=== PATIENT | female | born 1990 | race Caucasian/White ===

== ENCOUNTER 2020-06-25 11:04 | Emergency (ER) | payer OTHER ==
[~2020-06-25] VITALS: Ht 162.6 cm; Wt 104.3 kg
--- OUTSIDE RECORDS SUMMARY | 2020-06-25 11:08 | XMS ---
PreManage Notification: ALEJANDRO HOLLAND Security Catering Assistant Events No recent Security Events currently on file [facility] There are no care providers on record at this time. Diane has no Care Guidelines for this patient. Reuben VISIT COUNT (12 MO.) 1 GURVINDER Packer TOTAL 1 NOTE: Visits indicate total known visits. ED/C VISIT TRACKING (12 MO.) 06/25/2020 11:05 GURVINDER Harry OR TYPE: Emergency COMPLAINT: - HEADACHE INPATIENT VISIT TRACKING (12 MO.) No inpatient visits to display in this time frame [id number]
[2020-06-25] MEDS ORDERED: CYPROHEPTADINE H4 MG PO (11:44)
[2020-06-25] MEDS ORDERED: SUMATRIPTAN SUC50 MG PO (11:45)
[2020-06-25] MEDS ORDERED: DULOXETINE HCL60 MG PO (11:45)
[2020-06-25] MEDS ORDERED: REXULTI2 MG PO (11:46)
[2020-06-25] MEDS ORDERED: CLONAZEPAM1 MG PO (11:46)
[2020-06-25] MEDS ORDERED: OLANZAPINE5 MG PO (11:47)
== END 2020-06-25 15:30 | disposition home or self-care (01) ==
LOC: ED 11:04
DX: O99.891 Other specified diseases and conditions complicating pregnancy (principal); R51.9 Headache, unspecified; Z3A.14 14 weeks gestation of pregnancy; O99.331 Smoking (tobacco) complicating pregnancy, first trimester; F17.200 Nicotine dependence, unspecified, uncomplicated; Z88.2 Allergy status to sulfonamides; Z79.899 Other long term (current) drug therapy
CPT/HCPCS: 81001; 96374; 96375; 99284-25; J1200; J2765; J7030; J7042

== ENCOUNTER 2020-12-12 21:30 | Inpatient (IN) | payer OTHER ==
[~2020-12-12 21:30] MED LIST: CLONAZEPAM1 MG PO; CYPROHEPTADINE H4 MG PO; DULOXETINE HCL60 MG PO; OLANZAPINE5 MG PO; REXULTI2 MG PO; SUMATRIPTAN SUC50 MG PO
[2020-12-12] MEDS ORDERED: METHADONE HCL40 MG PO (23:07)
[2020-12-12] MEDS ORDERED: EXPECTA PRENAT1 EACH PO (23:07)
--- NOTE | 2020-12-12 23:24 | NUR ---
Covid swab to both nares, tolerated well.
--- NOTE | 2020-12-13 05:33 | PR ---
[facility] [address] [place], [place] [address] Signed Progress Notes IP Datetime Report Generated by CPN: 12/13/2020 05:33 PROGRESS NOTES: [id number] Impression: Normal Progression of Labor; Reassuring Heart Rate Procedures: Artificial ROM; Sterile Vag Exam Plan: Continue Present Management Informed Consent Obtain: Vaginal Delivery VITAL SIGNS: [id number] Vital Signs: Reviewed; Within Normal Limits EXAM: [id number] Dilatation: 5.0 Effacement: 90 Station: -1 Contractions: q 2-3 min MEMBRANES: [id number] Membranes Status: Intact Comments: Pt seen and examined. Doing well. Comfortable w/ epidural in place. Ctxs irregular. Recommended AROM and patient agrees. Vertex well applied. AROM performed for moderate amount of clear fluid. Discussed anticipated course of labor/delivery, and indications for augmentation if needed. Pt understands and agrees. FETUS A: [id number] FHR Baseline: 130 Variability: Moderate 6-25bpm Accelerations: 15X15 Decelerations: None Presentation: Vertex Comments on Fetus A: No evidence of metabolic acidosis FETUS B: [id number] Signing Physician: Lenin Calderon DO Copies: ~ *Electronically Signed* 12/13/2044 LENIN CALDERON DO PATIENT NAME: ALEJANDRO HOLLAND PROGRESS NOTE DATE OF : 89 PHYSICIAN: LENIN CALDERON DO RPT #: [id number] REPORT IS CONFIDENTIAL AND NOT TO BE RELEASED WITHOUT AUTHORIZATION
--- NOTE | 2020-12-13 05:53 | PR ---
[facility] [address] [place], [place] [address] Signed Progress Notes IP Datetime Report Generated by JUAN: 12/13/2020 05:53 PROGRESS NOTES: [id number] Impression: Normal Progression of Labor; Reassuring Heart Rate Other Impressions: Prolonged deceleration w/ rapid cervical change Procedures: Intrauterine Pressure Catheter; Scalp Electrode; Sterile Vag Exam Plan: Continue Present Management; Anticipate Vaginal Delivery Informed Consent Obtain: Vaginal Delivery; Section Delivery VITAL SIGNS: [id number] Vital Signs: Reviewed; Within Normal Limits EXAM: [id number] Dilatation: 8.0 Effacement: 100 Station: 0 Contractions: q 2-3 min MEMBRANES: [id number] Membranes Status: Intact Comments: Called to patient's room for prolonged deceleration. Pt c/o pelvic pressure and urge to push. Fetus recovered w/ maternal repositioning. Rapid cervical change noted. No prolapsed cord or other abnormality. IUPC and FSE placed w/out difficulty. Anticipate soon. Discussed indications for if needed. Pt reassured and all questions answered. FETUS A: [id number] FHR Baseline: 130 Variability: Moderate 6-25bpm Accelerations: 15X15 Decelerations: None Presentation: Vertex Comments on Fetus A: No evidence of metabolic acidosis FETUS B: [id number] Signing Physician: Lenin Calderon DO Copies: ~ *Electronically Signed* 12/13/20 0553 LENIN CALDERON DO PATIENT NAME: ALEJANDRO HOLLAND PROGRESS NOTE DATE OF : [birth year] PHYSICIAN: LENIN CALDERON DO [facility] #: [id number] REPORT IS CONFIDENTIAL AND NOT TO BE RELEASED WITHOUT AUTHORIZATION
--- NOTE | 2020-12-13 05:54 | PR ---
[facility] [address] [place], [place] [address] Signed Progress Notes IP Datetime Report Generated by JUAN: 12/13/2020 05:54 PROGRESS NOTES: [id number] Impression: Normal Progression of Labor; Reassuring Heart Rate Other Impressions: Prolonged deceleration w/ rapid cervical change Procedures: Intrauterine Pressure Catheter; Scalp Electrode; Sterile Vag Exam Plan: Continue Present Management; Anticipate Vaginal Delivery Informed Consent Obtain: Vaginal Delivery; Section Delivery VITAL SIGNS: [id number] Vital Signs: Reviewed; Within Normal Limits EXAM: [id number] Dilatation: 8.0 Effacement: 100 Station: 0 Contractions: q 2-3 min MEMBRANES: [id number] Membranes Status: Intact Comments: Called to patient's room for prolonged deceleration. Pt c/o pelvic pressure and urge to push. Fetus recovered w/ maternal repositioning. Rapid cervical change noted. No prolapsed cord or other abnormality. IUPC and FSE placed w/out difficulty. Anticipate soon. Discussed indications for if needed. Pt reassured and all questions answered. FETUS A: [id number] FHR Baseline: 130 Variability: Moderate 6-25bpm Accelerations: 15X15 Decelerations: None Presentation: Vertex Comments on Fetus A: No evidence of metabolic acidosis FETUS B: [id number] Signing Physician: Lenin Calderon DO Copies: ~ *Electronically Signed* 12/13/20 0554 LENIN CALDERON DO PATIENT NAME: ALEJANDRO HOLLAND PROGRESS NOTE DATE OF : 89 PHYSICIAN: LENIN CALDERON DO [facility] #: [id number] REPORT IS CONFIDENTIAL AND NOT TO BE RELEASED WITHOUT AUTHORIZATION
--- NOTE | 2020-12-14 09:37 | PR ---
[facility] [address] [facility] [place], [place] [address] Signed PP Progress Notes Datetime Report Generated by CPN: 12/14/2020 09:37 SUBJECTIVE: [id number] Pain: Within Normal Limits Nausea/Vomiting: Denies Bowel Movement: No Vital Signs: [id number] Vital Signs: Reviewed; Within Normal Limits EXAM: Ongoing Cardiovascular: Normal Respiratory: Normal Abdomen/Uterus: Normal Lochia: Normal Vulva/Perineum: Not Done Breasts: Not Done CVA Tenderness: Normal Extremities: Normal Incision: Not Applicable Progress: Normal Exam Comments: Fundus firm U-2 nontender IMPRESSION/PLAN/PROCEDURES: [id number] Impression: Normal Progression Plan: Continue Present Management Progress Notes: Pt seen and examined. Doing well. Ambulating, voiding, and tolerating full diet. Pain and lochia minimal. Breast adn bottlefeeding. No fevers/chills or other concerns. 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 Anticipate d/c home tomorrow. Hgb 10.6 Signing Physician: Lenin Calderon DO Copies: ~ *Electronically Signed* 12/14/20 0937 LENIN CALDERON DO PATIENT NAME: ALEJANDRO HOLLAND PROGRESS NOTE DATE OF : 89 PHYSICIAN: LENIN CALDERON DO RPT #: [id number] REPORT IS CONFIDENTIAL AND NOT TO BE RELEASED WITHOUT AUTHORIZATION
--- NOTE | 2020-12-15 10:10 | PR ---
[facility] [address] [facility] [place], [place] [address] Signed PP Progress Notes Datetime Report Generated by CPN: 12/15/2020 10:10 SUBJECTIVE: [id number] Pain: Within Normal Limits Nausea/Vomiting: Denies Bowel Movement: No Vital Signs: [id number] Vital Signs: Reviewed; Within Normal Limits EXAM: Met Cardiovascular: Normal Respiratory: Normal Abdomen/Uterus: Normal Lochia: Normal Vulva/Perineum: Not Done Breasts: Not Done CVA Tenderness: Normal Extremities: Normal Incision: Not Applicable Progress: Normal Exam Comments: Fundus firm U-2 nontender IMPRESSION/PLAN/PROCEDURES: [id number] Impression: Normal Progression Plan: Discharge Other Plans: Maryann Serrato Procedures: None Progress Notes: Doing well, pain less, taking Percocet but also on Methadone, so not helping much. Feels ready for discharge. 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 Signing Physician: Miller Navarro MD Copies: ~ *Electronically Signed* 12/15/20 1010 MILLER NAVARRO MD PATIENT NAME: ALEJANDRO HOLLAND PROGRESS NOTE DATE OF : 89 PHYSICIAN: MILLER NAVARRO MD RPT #: [id number] REPORT IS CONFIDENTIAL AND NOT TO BE RELEASED WITHOUT AUTHORIZATION
== END 2020-12-15 10:15 | disposition home or self-care (01) | DRG 807 ==
LOC: FBCO 21:30 → FBC 22:40
PROVIDERS: ADMIT Obstetrics & Gynecology; ATTEND Obstetrics & Gynecology
PROC: 10E0XZZ Delivery of Products of Conception, External Approach (ICD-10-PCS; principal; 2020-12-13)
PROC: 10H07YZ Insertion of Other Device into Products of Conception, Via Natural or Artificial Opening (ICD-10-PCS; 2020-12-13)
PROC: 10H073Z Insertion of Monitoring Electrode into Products of Conception, Via Natural or Artificial Opening (ICD-10-PCS; 2020-12-13)
PROC: 0KQM0ZZ Repair Perineum Muscle, Open Approach (ICD-10-PCS; 2020-12-13)
PROC: 10907ZC Drainage of Amniotic Fluid, Therapeutic from Products of Conception, Via Natural or Artificial Opening (ICD-10-PCS; 2020-12-13)
PROC: 3E0R3BZ Introduction of Anesthetic Agent into Spinal Canal, Percutaneous Approach (ICD-10-PCS; 2020-12-13)
PROC: 00HU33Z Insertion of Infusion Device into Spinal Canal, Percutaneous Approach (ICD-10-PCS; 2020-12-13)
DX: O99.334 Smoking (tobacco) complicating childbirth (principal); Z37.0 Single live birth; Z3A.39 39 weeks gestation of pregnancy; Z20.822 Contact with and (suspected) exposure to COVID-19; O99.324 Drug use complicating childbirth; F11.10 Opioid abuse, uncomplicated; O99.344 Other mental disorders complicating childbirth; F20.9 Schizophrenia, unspecified; F41.9 Anxiety disorder, unspecified; F32.9 Major depressive disorder, single episode, unspecified; F17.210 Nicotine dependence, cigarettes, uncomplicated; O70.1 Second degree perineal laceration during delivery; Z79.899 Other long term (current) drug therapy; Z88.2 Allergy status to sulfonamides
CPT/HCPCS: 01960; 85027; A9270; C9803; J2590; J2795; J3010; J7121; U0003